=== PATIENT | female | born 1975 | race Caucasian/White ===

== ENCOUNTER → 2017-05-12 | Outpatient (CLI) | payer BC ==
--- NOTE | 2017-05-12 12:39 | RADIOLOGY REPORT (SQ) ---
EXAM DESCRIPTION: CTA CHEST COMPLETED DATE/TIME: 05/12/2017 11:41 am REASON FOR STUDY: CHEST PAIN, UNSPECIFIED R07.9 CHEST PAIN, UNSPECIFIED R06.02 SHORTNESS OF BREATH COMPARISON: CT angio chest 03/03/2016, 09/14/2014 TECHNIQUE: CT scan of the chest performed using helical scanning technique with dynamic intravenous contrast injection. Images reviewed with lung, soft tissue and bone windows. Reconstructed coronal and sagittal MPR images reviewed. Additional 3 dimensional post-processing performed to develop Maximal Intensity Projection images (CA P). All images stored on PACS. All CT scanners at this facility use dose modulation, iterative reconstruction, and/or weight based d osing when appropriate to reduce radiation dose to as low as reasonably achievable (ALARA). [facility]: Dose Right [facility]: CareDose [facility]: Dose Right [facility]: Teradose 4D [facility]: [email or web address] CONTRAST TYPE AND DOSE: contrast/concentration: Isovue 370.00 mg/ml; Total Contrast Delivered: 69.0 ml; Total Saline Delivered: 110.0 ml RENAL FUNCTION: Creatinine 0.9 RADIATION DOSE: Up-to-date CT equipment and radiation dose reduction techniques were employed. CTDIv ol: 9.4 - 15.4 mGy. DLP: 585 mGy-cm. . LIMITATIONS: None. FINDINGS: LUNGS AND PLEURA: No masses, infiltrates, pneumothorax. No pleural effusions, calcificati ons. AORTA AND GREAT VESSELS: No aneurysm or dissection. HEART: No pericardial effusion. PULMONARY ARTERIES: No emboli visualized in the main pulmonary arteries or the segmental branches. HILAR AND MEDIASTINAL STRUCTURES: No identified masses or abnormal nodes. HARDWARE: None in the chest. UPPER ABDOMEN: Stable splenomegaly, spleen at least 16 cm AP diameter at the bottom edge of the field of view. Post cholecystectomy. THYROID AND OTHER SOFT TISSUES: No masses. No adenopathy. BONES: Diffuse bony sclerosis correlates with a history of CLL 3D MIPS: Confirm above findings. OTHER: No other significant finding. IMPRESSION: No CT angio evidence of acute pulmonary emboli or thoracic aortic dissection. No acute infiltrates. Splenomegaly and bony sclerosis correlates with history of CLL TECHNICAL DOCUMENTATION: JOB ID: [id number] Quality ID # [id number]: Final reports with documentation of one or more dose reduction techniques (e.g., Au tomated exposure control, adjustment of the mA and/or kV according to patient size, use of iterative reconstruction technique) 2010 [facility] [employer]- All Rights Reserved
== END ==
LOC: RAD 10:52
PROVIDERS: ATTEND Internal Medicine
DX: R07.9 Chest pain, unspecified (principal); R06.02 Shortness of breath
CPT/HCPCS: 71275; 82565

== ENCOUNTER 2017-08-01 13:37 | Emergency (ER) | payer BC ==
[2017-08-01] MEDS ORDERED: ASPIRIN 81 MG TABLET, CHEWABLE PO ONE (14:48)
[2017-08-01] MEDS ORDERED: LIDOCAINE 5% (700 MG) TRANSDERMAL ADH..PATCH TP ONE (14:49)
--- NOTE | 2017-08-01 14:49 | ER Document Report ---
ED Medical Screen (RME) - General Chief Complaint: Chest Pain Stated Complaint: CHEST PAIN Time Seen by Provider: 08/01/17 14:42 TRAVEL OUTSIDE OF THE [place] IN LAST 30 DAYS: No - HPI Notes: 08/01/17 14:49 Right arm numbness and tingling burning sensation along the right chest wall pain history of leukemia - Related Data Allergies/Adverse Reactions: No Known Allergies Allergy (Unverified 09/07/11 15:42) Past Medical History - Social History Chew tobacco use (# tins/day): No Frequency of alcohol use: None Drug Abuse: None - Past Medical History Cardiac Medical History: Denies: Hx Coronary Artery Disease, Hx Heart Attack, Hx Hypertension Pulmonary Medical History: Denies: Hx Asthma, Hx Bronchitis, Hx COPD, Hx Pneumonia Neurological Medical History: Denies: Hx Cerebrovascular Accident, Hx Seizures Renal/ Medical History: Denies: Hx Peritoneal Dialysis Malignancy Medical History: Reports: Hx Leukemia Musculoskeltal Medical History: Denies Hx Arthritis Past Surgical History: Reports: Hx Appendectomy, Hx Breast Surgery - lump removal, Hx Section - X2, Hx Cholecystectomy, Hx Tubal Ligation. Denies: Hx Hysterectomy, Hx Pacemaker - Immunizations Hx Diphtheria, Pertussis, Tetanus Vaccination: Yes Review of Systems - Review of Systems Constitutional: Other - Right-sided chest pain and arm pain Physical Exam - Vital signs Vitals: Temp Pulse Resp BP Pulse Ox 98.8 F 67 16 130/68 H 97 08/01/17 13:47 08/01/17 13:47 08/01/17 13:47 08/01/17 13:47 08/01/17 13:47 - Respiratory Respiratory status: No respiratory distress Chest status: Nontender Breath sounds: Normal Chest palpation: Normal Course - Vital Signs Vital signs: Temp Pulse Resp BP Pulse Ox 98.8 F 67 16 130/68 H 97 08/01/17 13:47 08/01/17 13:47 08/01/17 13:47 08/01/17 13:47 08/01/17 13:47
[2017-08-01 15:26] LABS: ABSOLUTE EOSINOPHILS # (AUTO) 0.1 10^3/uL (0.0-0.6); ABSOLUTE LYMPHOCYTES (AUTO) 1.4 10^3/uL (0.5-4.7); ABSOLUTE MONOCYTES (AUTO) 0.2 10^3/uL (0.1-1.4); ABSOLUTE NEUT (AUTO) 1.5 10^3/uL (1.7-8.2); BASOPHILS % (AUTO) 0.7 % (0-2); EOSINOPHILS % (AUTO) 2.5 % (0-6); HEMATOCRIT 34.7 % (36.0-47.0); HGB HCT DIFFERENCE 1.3; LYMPHOCYTES % (AUTO) 43.8 % (13-45); MEAN CORPUSCULAR HEMOGLOBIN 30.6 pg (27.0-33.4); MEAN CORPUSCULAR HGB CONC 34.6 g/dL (32.0-36.0); MEAN CORPUSCULAR VOLUME 88 fl (80-97); MONOCYTES % (AUTO) 5.7 % (3-13); RED BLOOD COUNT 3.93 10^6/uL (3.72-5.28); RED CELL DISTRIBUTION WIDTH 15.5 % (11.5-14.0); SEGMENTED NEUTROPHILS % (AUTO) 47.3 % (42-78); WHITE BLOOD COUNT 3.2 10^3/uL (4.0-10.5)
[2017-08-01 15:32] LABS: PROTHROMBIN TIME 12.3 SEC (11.4-15.4)
[2017-08-01 15:43] LABS: ALANINE AMINOTRANSFERASE 18 U/L (9-52); ALKALINE PHOSPHATASE 41 U/L (38-126); ANION GAP 7 (5-19); ASPARTATE AMINO TRANSFERASE 18 U/L (14-36); BILIRUBIN,DIRECT 0.3 mg/dL (0.0-0.4); BILIRUBIN,TOTAL 0.5 mg/dL (0.2-1.3); BLOOD UREA NITROGEN 10 mg/dL (7-20); CALCIUM 10.1 mg/dL (8.4-10.2); CARBON DIOXIDE 28 mmol/L (22-30); CHLORIDE 105 mmol/L (98-107); CREATINE KINASE 117 U/L (30-135); CREATININE RESULT 0.78 mg/dL (0.52-1.25); GLUCOSE 86 mg/dL (75-110); POTASSIUM 4.6 mmol/L (3.6-5.0); SODIUM 140.1 mmol/L (137-145); TOTAL PROTEIN 6.5 g/dL (6.3-8.2)
--- NOTE | 2017-08-01 15:46 | RADIOLOGY REPORT (SQ) ---
EXAM DESCRIPTION: CHEST PA/LAT COMPLETED DATE/TIME: 08/01/2017 3:38 pm REASON FOR STUDY: right chest wall pain COMPARISON: 09/10/2014. EXAM PARAMETERS: NUMBER OF VIEWS: two views TECHNIQUE: Digital Frontal and Lateral radiographic views of the chest acquired. RADIATION DOSE: NA LIMITATIONS: none FINDINGS: LUNGS AND PLEURA: No opacities, masses or pneumothorax. No pleural effusion. MEDIASTINUM AND HILAR STRUCTURES: No masses or contour abnormalities. HEART AND VASCULAR STRUCTURES: Heart normal size. No evidence for failure. BONES: No acute findings. HARDWARE: None in the chest. OTHER: No other significant finding. IMPRESSION: NO SIGNIFICANT RADIOGRAPHIC FINDING IN THE CHEST. TECHNICAL DOCUMENTATION: JOB ID: [id number] [employer]- All Rights Reserved
--- NOTE | 2017-08-01 15:46 | RADIOLOGY REPORT (SQ) ---
EXAM DESCRIPTION: CERV SP 4 OR 5 VIEWS COMPLETED DATE/TIME: 08/01/2017 3:38 pm REASON FOR STUDY: right arm pain COMPARISON: None. NUMBER OF VIEWS: Five views. TECHNIQUE: AP, lateral, obliques and odontoid radiographic images acquired of the cervical spine. LIMITATIONS: None. FINDINGS: MINERALIZATION: Normal. ALIGNMENT: Anatomic. VERTEBRAE: Vertebral bodies of normal height. DISCS: No significant osteophytes or sclerosis. Disc height maintained. FORAMINA: No osteophytes or foraminal narrowing. LATERAL AND POSTERIOR ELEMENTS: Facets, lateral masses and spinous processes without significant find ings. HARDWARE: None in the spine. SOFT TISSUES: No masses or calcifications. Lung apices clear. OTHER: No other significant finding. IMPRESSION: NO SIGNIFICANT RADIOGRAPHIC FINDING IN THE CERVICAL SPINE. TECHNICAL DOCUMENTATION: JOB ID: [id number] [employer]- All Rights Reserved
[2017-08-01 15:54] LABS: CREATINE KINASE MB 1.43 ng/mL (<4.55)
[2017-08-01 15:55] LABS: TROPONIN I < 0.012 ng/mL
--- NOTE | 2017-08-01 15:57 | ER Document Report ---
ED General - General Mode of Arrival: Ambulatory Information source: Patient TRAVEL OUTSIDE OF THE [place] IN LAST 30 DAYS: No <BEN LUNDY - Last Filed: 08/01/17 15:59> <GOLDEN MCNAIR - Last Filed: 08/01/17 22:28> - General Chief Complaint: Chest Pain Stated Complaint: CHEST PAIN Time Seen by Provider: 08/01/17 14:42 Notes: Patient is a 43-year-old female who presents to the emergency department today with complaints of chest pain and right finger/hand numbness. Patient states she has noticed this right hand numbness for several days, worsening at night. Patient states the numbness is to her first, second, third, and fourth digits on the right hand but it excludes the fifth digit. Patient states her chest pain began this morning and it became worse prior to arrival today. She describes this chest pain as a sharp pain that radiates to her back. Patient states she has shortness of breath when her pain becomes bad. Patient has a history of leukemia but states it has been in remission for 9 months. (BEN LUNDY) - Related Data Allergies/Adverse Reactions: No Known Allergies Allergy (Unverified 09/07/11 15:42) Past Medical History - General Information source: Patient - Social History Smoking Status: Never Smoker Cigarette use (# per day): No Chew tobacco use (# tins/day): No Frequency of alcohol use: None Drug Abuse: None Lives with: Family Family History: Reviewed & Not Pertinent Patient has suicidal ideation: No Patient has homicidal ideation: No Malignancy Medical History: Reports: Hx Leukemia - has been in remission for 9 months Past Surgical History: Reports: Hx Appendectomy, Hx Breast Surgery - lump removal, Hx Section - X2, Hx Cholecystectomy, Hx Tubal Ligation - Immunizations Hx Diphtheria, Pertussis, Tetanus Vaccination: Yes Hx Pneumococcal Vaccination: 08/15/14 <BEN LUNDY - Last Filed: 08/01/17 15:59> Review of Systems - Review of Systems Constitutional: No symptoms reported EENT: No symptoms reported Cardiovascular: See HPI, Chest pain Respiratory: Short of breath Gastrointestinal: No symptoms reported Genitourinary: No symptoms reported Female Genitourinary: No symptoms reported Musculoskeletal: No symptoms reported Skin: No symptoms reported Hematologic/Lymphatic: No symptoms reported Neurological/Psychological: See HPI, Tingling - right hand, 1-4th digits, excludes 5th digit -: Yes All other systems reviewed and negative <NIKKIE,BEN - Last Filed: 08/01/17 15:59> Physical Exam <BEN LUNDY - Last Filed: 08/01/17 15:59> <GOLDEN MCNAIR - Last Filed: 08/01/17 22:28> - Vital signs Vitals: Temp Pulse Resp BP Pulse Ox 98.8 F 67 16 130/68 H 97 08/01/17 13:47 08/01/17 13:47 08/01/17 13:47 08/01/17 13:47 08/01/17 13:47 - Notes Notes: PHYSICAL EXAM GENERAL: Alert, interacts well. No acute distress. HEAD: Normocephalic, atraumatic. EYES: Pupils equal, round, and reactive to light. Extraocular movements intact. ENT: Oral mucosa moist, tongue midline. NECK: Full range of motion. Supple. Trachea midline. LUNGS: Crackles in the right lower lobe, no wheezes or rhonchi. No respiratory distress. CHEST: Right anterior chest wall pain with palpation. HEART: Regular rate and rhythm. No murmurs, gallops, or rubs. ABDOMEN: Soft, non-tender. Non-distended. Bowel sounds present in all 4 quadrants. EXTREMITIES: Moves all 4 extremities spontaneously. No edema, radial and dorsalis pedis pulses 2/4 bilaterally. No cyanosis. Negative Tinel's test, Positive Phalen's test. NEUROLOGICAL: Alert and oriented x3. Normal speech. PSYCH: Normal affect, normal mood. SKIN: Warm, dry, normal turgor. No rashes or lesions noted. (BEN LUNDY) Course - Laboratory Result Diagrams: 08/01/17 15:15 08/01/17 15:15 <BEN LUNDY - Last Filed: 08/01/17 15:59> - Laboratory Result Diagrams: 08/01/17 15:15 08/01/17 15:15 <GOLDEN MCNAIR - Last Filed: 08/01/17 22:28> - Re-evaluation Re-evalutation: 08/01/17 18:39 CBC shows slight leukopenia with white blood cell count of 3.2 and platelets slightly low at 145, coags normal, CMP normal, cardiac enzymes negative 2, cervical spine and chest x-ray do not show any acute process. EKG is nonischemic. Chest pain is reproducible on examination. Suspect costochondritis. Patient is low risk for ischemic heart disease. Suggest follow-up with primary care physician as an outpatient. Discharged home with anti-inflammatory medications in the form of ibuprofen. 08/01/17 22:26 right wrist tingling consistent with carpal tunnel syndrome, placed in cock-up splint. (GOLDEN MCNAIR) - Vital Signs Vital signs: Temp Pulse Resp BP Pulse Ox 98.8 F 77 18 115/69 98 08/01/17 13:47 08/01/17 19:00 08/01/17 19:00 08/01/17 19:00 08/01/17 19:00 - Laboratory Laboratory results interpreted by me: 08/01/17 15:15 WBC 3.2 L Hct 34.7 L RDW 15.5 H Plt Count 145 L Absolute Neutrophils 1.5 L Procedures - Immobilization Right Wrist Pre-Proc Neuro Vasc Exam: Normal Immobilizer type: Cock-up Performed by: PCT Post-Proc Neuro Vasc Exam: Normal, Unchanged from pre-exam Alignment checked and good: Yes <GOLDEN MCNAIR - Last Filed: 08/01/17 22:28> Discharge <BEN LUNDY - Last Filed: 08/01/17 15:59> <GOLDEN MCNAIR - Last Filed: 08/01/17 22:28> - Discharge Clinical Impression: Right-sided chest wall pain, Carpal tunnel syndrome, right Hypertension Qualifiers: Hypertension type: essential hypertension Qualified Code(s): I10 - Essential ( primary) hypertension Condition: Stable Disposition: HOME, SELF-CARE Instructions: Chest Wall Pain ([facility]) Additional Instructions: Please take ibuprofen 800 mg every 8 hours for the next 2 days for your pain, you may take it only as needed after that. There is no sign of a heart attack today. Please follow-up with your primary care physician as outpatient. Forms: Elevated Blood Pressure Referrals: ANTHONY MAST MD [Primary Care Provider] - Follow up as needed Scribe Attestation: 08/01/17 22:28 I personally performed the services described in the documentation, reviewed and edited the documentation which was dictated to the scribe in my presence, and it accurately records my words and actions. (GOLDEN MCNAIR) Scribe Documentation - Scribe Written by Wayne:: Wayne Santos, 08/01/2017 1610 acting as scribe for :: Majo <BEN LUNDY - Last Filed: 08/01/17 15:59>
[2017-08-01 19:01] VITALS: BP 115/69
--- NOTE | 2017-08-01 23:33 | EKG REPORT ---
SEVERITY:- NORMAL ECG - SINUS RHYTHM : Confirmed by: Velma Whelan 01-Aug-2017 23:32:28
== END 2017-08-01 19:00 | disposition home or self-care (01) ==
LOC: ER 13:37
DX: R07.89 Other chest pain (principal); G56.01 Carpal tunnel syndrome, right upper limb; I10 Essential (primary) hypertension; R20.0 Anesthesia of skin; M79.641 Pain in right hand
CPT/HCPCS: 93005; 99285; 36415; 82553; 82550; 85025; 85610; 80053; 84484; 72050; 71020; 93010; L3908

== ENCOUNTER 2018-04-07 15:42 | Emergency (ER) | payer BC ==
[2018-04-07] MEDS ORDERED: ACETAMINOPHEN 325 MG TABLET PO ONE (16:10)
--- NOTE | 2018-04-07 16:12 | ER Document Report ---
ED Medical Screen (RME) - General Chief Complaint: Abdominal Pain Stated Complaint: BACK PAIN/ ABDOMINAL PAIN Time Seen by Provider: 04/07/18 16:07 Notes: RAPID MEDICAL EVALUATION DISCLOSURE I have seen this patient as part of a Rapid Medical Evaluation and, if applicable, placed any initially appropriate orders. The patient will be seen and fully evaluated, including a full history and physical exam, by a provider ( in Main ED or Fast Track) when a room becomes available. 42-year-old female here with complaints of upper abdominal pain ongoing for the past 1-2 weeks. It is worse with sitting down. Not worse with food. No dysuria nausea vomiting diarrhea frequency hesitancy. She is also had some continued lower back "burning sensation" that is causing some tingling to the back of her right thigh. She denies any incontinence retention weakness. EXAM Minimal upper quadrant TTP No appreciable back tenderness Strength 5/5 BLEs TRAVEL OUTSIDE OF THE [place] IN LAST 30 DAYS: No - Related Data Allergies/Adverse Reactions: No Known Allergies Allergy (Unverified 09/07/11 15:42) Home Medications: spycel Past Medical History - Social History Chew tobacco use (# tins/day): No Frequency of alcohol use: None Drug Abuse: None - Past Medical History Cardiac Medical History: Denies: Hx Coronary Artery Disease, Hx Heart Attack, Hx Hypertension Pulmonary Medical History: Denies: Hx Asthma, Hx Bronchitis, Hx COPD, Hx Pneumonia Neurological Medical History: Denies: Hx Cerebrovascular Accident, Hx Seizures Renal/ Medical History: Denies: Hx Peritoneal Dialysis Malignancy Medical History: Reports: Hx Leukemia - has been in remission for 9 months Musculoskeltal Medical History: Denies Hx Arthritis Past Surgical History: Reports: Hx Appendectomy, Hx Breast Surgery - lump removal, Hx Section - X2, Hx Cholecystectomy, Hx Tubal Ligation. Denies: Hx Hysterectomy, Hx Pacemaker - Immunizations Hx Diphtheria, Pertussis, Tetanus Vaccination: Yes Physical Exam - Vital signs Vitals: Temp Pulse Resp BP Pulse Ox 99.2 F 82 16 139/75 H 100 04/07/18 15:55 04/07/18 15:55 04/07/18 15:55 04/07/18 15:55 04/07/18 15:55 Course - Vital Signs Vital signs: Temp Pulse Resp BP Pulse Ox 99.2 F 82 16 139/75 H 100 04/07/18 15:55 04/07/18 15:55 04/07/18 15:55 04/07/18 15:55 04/07/18 15:55
--- NOTE | 2018-04-07 17:14 | RADIOLOGY REPORT (SQ) ---
EXAM DESCRIPTION: ACUTE ABDOMEN SERIES COMPLETED DATE/TIME: 04/07/2018 5:05 pm REASON FOR STUDY: upper abd pain COMPARISON: None. NUMBER OF VIEWS: Three views. TECHNIQUE: Frontal chest, supine abdomen and upright/decubitus abdomen radiographic images acquired. LIMITATIONS: None. FINDINGS: CHEST: Lungs clear of infiltrates. FREE AIR: None. No abnormal gas collections. BOWEL GAS PATTERN: Nonobstructive pattern. No dilated loops or air fluid levels. CALCIFICATIONS: No suspicious calcifications. HARDWARE: Surgical clips. SOFT TISSUES: No gross mass or suggestion of organomegaly. BONES: No acute fracture. No worrisome bone lesions. OTHER: No other significant finding. IMPRESSION: NO RADIOGRAPHIC EVIDENCE FOR ACUTE ABDOMINAL DISEASE. TECHNICAL DOCUMENTATION: JOB ID: [id number] [email or web address]- All Rights Reserved Reading location - IP/workstation name: [email or web address]
[2018-04-07 17:44] LABS: ABSOLUTE EOSINOPHILS # (AUTO) 0.1 10^3/uL (0.0-0.6); ABSOLUTE LYMPHOCYTES (AUTO) 1.2 10^3/uL (0.5-4.7); ABSOLUTE MONOCYTES (AUTO) 0.2 10^3/uL (0.1-1.4); ABSOLUTE NEUT (AUTO) 2.1 10^3/uL (1.7-8.2); BASOPHILS % (AUTO) 0.8 % (0-2); EOSINOPHILS % (AUTO) 1.6 % (0-6); HEMATOCRIT 36.2 % (36.0-47.0); HEMOGLOBIN 12.4 g/dL (12.0-15.5); LYMPHOCYTES % (AUTO) 32.2 % (13-45); MEAN CORPUSCULAR HEMOGLOBIN 29.9 pg (27.0-33.4); MEAN CORPUSCULAR HGB CONC 34.2 g/dL (32.0-36.0); MEAN CORPUSCULAR VOLUME 88 fl (80-97); MONOCYTES % (AUTO) 5.8 % (3-13); PLATELET COUNT 158 10^3/uL (150-450); RED BLOOD COUNT 4.14 10^6/uL (3.72-5.28); RED CELL DISTRIBUTION WIDTH 15.3 % (11.5-14.0); SEGMENTED NEUTROPHILS % (AUTO) 59.6 % (42-78); TOTAL CELLS COUNTED % (AUTO) 100 %; WHITE BLOOD COUNT 3.6 10^3/uL (4.0-10.5)
[2018-04-07 18:02] LABS: ALANINE AMINOTRANSFERASE 21 U/L (9-52); ALBUMIN 4.2 g/dL (3.5-5.0); ALKALINE PHOSPHATASE 38 U/L (38-126); ANION GAP 11 (5-19); ASPARTATE AMINO TRANSFERASE 18 U/L (14-36); BILIRUBIN,DIRECT 0.2 mg/dL (0.0-0.4); BILIRUBIN,TOTAL 0.4 mg/dL (0.2-1.3); BLOOD UREA NITROGEN 10 mg/dL (7-20); CALCIUM 9.4 mg/dL (8.4-10.2); CARBON DIOXIDE 26 mmol/L (22-30); CHLORIDE 107 mmol/L (98-107); GLUCOSE 90 mg/dL (75-110); LIPASE 178.3 U/L (23-300); POTASSIUM 3.8 mmol/L (3.6-5.0); SODIUM 143.5 mmol/L (137-145); TOTAL PROTEIN 6.9 g/dL (6.3-8.2)
[2018-04-07 18:04] LABS: APPEARANCE,URINE CLEAR; BILIRUBIN,URINE NEGATIVE (NEGATIVE); COLOR,URINE YELLOW; GLUCOSE, URINE NEGATIVE (NEGATIVE); KETONES,URINE TRACE mg/dL (NEGATIVE); LEUKOCYTE ESTERASE,URINE NEGATIVE (NEGATIVE); NITRITE,URINE NEGATIVE (NEGATIVE); PROTEIN,URINE 100 mg/dL (NEGATIVE); URINE SPECIFIC GRAVITY 1.021; UROBILINOGEN,URINE NEGATIVE mg/dL (<2.0)
--- NOTE | 2018-04-07 19:35 | ER Document Report ---
ED General - General Chief Complaint: Abdominal Pain Stated Complaint: BACK PAIN/ ABDOMINAL PAIN Time Seen by Provider: 04/07/18 16:07 Notes: Patient is a 42 year old female that comes to the ED for chief complaint of abdominal pain. She states she has frequent belching, she has to take stool softeners to have a bowel movement, her bowel movements are slightly hard. She denies fever, nausea/vomiting, pain worse with eating, chest pain, shortness of breath, headache. She has a history of CLL and is taking chemotherapy. She has had a cholecystectomy, tubal ligation. TRAVEL OUTSIDE OF THE [place] IN LAST 30 DAYS: No - Related Data Allergies/Adverse Reactions: No Known Allergies Allergy (Unverified 09/07/11 15:42) Home Medications: spycel Past Medical History - General Information source: Patient - Social History Smoking Status: Never Smoker Chew tobacco use (# tins/day): No Frequency of alcohol use: None Drug Abuse: None Lives with: Family Family History: Reviewed & Not Pertinent Patient has suicidal ideation: No Patient has homicidal ideation: No - Past Medical History Cardiac Medical History: Denies: Hx Coronary Artery Disease, Hx Heart Attack, Hx Hypertension Pulmonary Medical History: Denies: Hx Asthma, Hx Bronchitis, Hx COPD, Hx Pneumonia Neurological Medical History: Denies: Hx Cerebrovascular Accident, Hx Seizures Renal/ Medical History: Denies: Hx Peritoneal Dialysis Malignancy Medical History: Reports: Hx Leukemia - has been in remission for 9 months Musculoskeltal Medical History: Denies Hx Arthritis Past Surgical History: Reports: Hx Appendectomy, Hx Breast Surgery - lump removal, Hx Section - X2, Hx Cholecystectomy, Hx Tubal Ligation. Denies: Hx Hysterectomy, Hx Pacemaker - Immunizations Hx Diphtheria, Pertussis, Tetanus Vaccination: Yes Hx Pneumococcal Vaccination: 08/15/14 Review of Systems - Review of Systems Constitutional: No symptoms reported EENT: No symptoms reported Cardiovascular: No symptoms reported Respiratory: No symptoms reported Gastrointestinal: See HPI Genitourinary: No symptoms reported Female Genitourinary: No symptoms reported Musculoskeletal: No symptoms reported Skin: No symptoms reported Hematologic/Lymphatic: No symptoms reported Neurological/Psychological: No symptoms reported Physical Exam - Vital signs Vitals: Temp Pulse Resp BP Pulse Ox 99.2 F 82 16 139/75 H 100 04/07/18 15:55 04/07/18 15:55 04/07/18 15:55 04/07/18 15:55 04/07/18 15:55 Interpretation: Normal - General General appearance: Appears well, Alert In distress: None - HEENT Head: Normocephalic, Atraumatic Eyes: Normal Conjunctiva: Normal Extraocular movements intact: Yes Eyelashes: Normal Pupils: PERRL Mouth/Lips: Normal Mucous membranes: Normal Pharynx: Normal Neck: Normal - Respiratory Respiratory status: No respiratory distress Chest status: Nontender Breath sounds: Normal Chest palpation: Normal - Cardiovascular Rhythm: Regular Heart sounds: Normal auscultation Murmur: No - Abdominal Inspection: Normal Distension: Other - questionable minimal distension Bowel sounds: Normal Tenderness: No: Tender Organomegaly: No organomegaly - Back Back: Normal, Nontender. No: Tender - Extremities General upper extremity: Normal inspection, Nontender, Normal strength, Normal temperature General lower extremity: Normal inspection, Nontender, Normal strength, Normal temperature - Neurological Neuro grossly intact: Yes Cognition: Normal Orientation: AAOx4 [place] Coma Scale Eye Opening: Spontaneous [place] Coma Scale Verbal: Oriented Lv Coma Scale Motor: Obeys Commands Lv Coma Scale Total: 15 Speech: Normal Motor strength normal: LUE, RUE, LLE, RLE Sensory: Normal - Psychological Associated symptoms: Normal affect, Normal mood - Skin Skin Temperature: Warm Skin Moisture: Dry Skin Color: Normal Course - Re-evaluation Re-evalutation: Patient very well-appearing on exam, unremarkable abdominal exam with no noted tenderness or guarding, patient belches frequently on examination. Mild leukopenia, similar to prior, no significant changes. Chemistry unremarkable. Lipase unremarkable. Urinalysis shows a few ketones, nonspecific otherwise, patient states she has some contamination with her current menstrual cycle with it. Acute abdominal series from triage reviewed and is unremarkable. Vital signs unremarkable, no fever. X-ray does show stool specifically in the patient's or patient complains of bloating symptoms, I suspect this is the cause, also will treat for upper gastrointestinal symptoms. Very low suspicion of acute abdomen or infection. Discussed results with patient and family in detail, discussed medications, follow-up, return precautions, they state understanding and agreement. - Vital Signs Vital signs: Temp Pulse Resp BP Pulse Ox 98.8 F 80 18 127/76 H 98 04/07/18 20:15 04/07/18 20:15 04/07/18 20:15 04/07/18 20:15 04/07/18 20:15 - Laboratory Result Diagrams: 04/07/18 17:10 04/07/18 17:10 Laboratory results interpreted by me: 04/07/18 04/07/18 17:10 17:10 WBC 3.6 L RDW 15.3 H Urine Protein 100 H Urine Ketones TRACE H Urine Blood MODERATE H Discharge - Discharge Clinical Impression: Upper abdominal pain Condition: Stable Disposition: HOME, SELF-CARE Additional Instructions: Your laboratory workup does not show any concerning abnormalities. Your x-ray and imaging are consistent with retained stool in the upper part of your colon, your symptoms are also suggestive of some esophagitis/gastritis. Reduce caffeine, improve hydration, take your Zantac at home, you can also take the Carafate as prescribed to reduce the burning symptoms. I recommend drinking 1/2-1/4 of the magnesium citrate, waiting 6-8 hours and then drinking more as needed, if needed additionally take the MiraLAX for several days until the bowels have moved well and you no longer have the bloating. After this stop and increase fiber and hydration in your diet. Follow-up with your primary care. Return if you worsen including fever of 100.4 or greater, vomiting, severe abdominal pain, or any other concerning or worsening symptoms. Prescriptions: Polyethylene Glycol 3350 [Miralax Powder 17 gm/Packet] 1 packet PO DAILY #1 pkg Sucralfate [Carafate 1 gm Tablet] 1 gm PO QID #20 tablet Referrals: GUALBRETO CUELLO MD [Primary Care Provider] - Follow up as needed
[2018-04-07] MEDS ORDERED: MAGNESIUM CITRATE 296 ML BOTTLE PO ONE (19:50)
[2018-04-07 20:20] VITALS: BP 127/76
== END 2018-04-07 20:21 | disposition home or self-care (01) ==
LOC: ER 15:42
DX: R10.10 Upper abdominal pain, unspecified (principal); R14.2 Eructation; C91.10 Chronic lymphocytic leukemia of B-cell type not having achieved remission; Z79.899 Other long term (current) drug therapy; Z90.49 Acquired absence of other specified parts of digestive tract; Z98.51 Tubal ligation status
CPT/HCPCS: 99284; 36415; 83690; 85025; 81025; 80053; 81001; 74022; J3490

== ENCOUNTER → 2018-10-19 | Outpatient (CLI) | payer BC ==
--- NOTE | 2018-10-19 11:36 | RADIOLOGY REPORT (SQ) ---
EXAM DESCRIPTION: CTA CHEST COMPLETED DATE/TIME: 10/19/2018 10:33 am REASON FOR STUDY: CHEST PAIN (R07.89), SOB (R06.02) R07.89 OTHER CHEST PAIN R06.02 SHORTNESS OF BR EATH chest pain and shortness of breath for a few weeks COMPARISON: CT chest 05/12/2017, 03/03/2016, 09/14/2014 TECHNIQUE: CT scan of the chest performed using helical scanning technique with dynamic intravenous contrast injection. Images reviewed with lung, soft tissue and bone windows. Reconstructed coronal and sagittal MPR images reviewed. Additional 3 dimensional post-processing performed to develop Maximal Intensity Projection images (ME P). All images stored on PACS. All CT scanners at this facility use dose modulation, iterative reconstruction, and/or weight based d osing when appropriate to reduce radiation dose to as low as reasonably achievable (ALARA). [facility]: Dose Right [facility]: CareDose [facility]: Dose Right [facility]: Teradose 4D [facility]: Recorrido CONTRAST TYPE AND DOSE: contrast/concentration: Isovue 350.00 mg/ml; Total Contrast Delivered: 69.0 ml; Total Saline Delivered: 110.0 ml Contrast bolus optimized for the pulmonary arteries. Not diagnostic for the aorta. RENAL FUNCTION: None required. The patient is less than 50 years old. RADIATION DOSE: CT Rad equipment meets quality standard of care and radiation dose reduction techniq ues were employed. CTDIvol: 9.4 - 12.8 mGy. DLP: 496 mGy-cm. . LIMITATIONS: None. FINDINGS: LUNGS AND PLEURA: No masses, infiltrates, or pneumothorax. No pleural effusions or pleura l calcifications. AORTA AND GREAT VESSELS: No aneurysm. Contrast bolus not optimized for the aorta. HEART: No pericardial effusion. No significant coronary artery calcifications. PULMONARY ARTERIES: No emboli visualized in the main pulmonary arteries or the segmental branches. HILAR AND MEDIASTINAL STRUCTURES: No identified masses or abnormal nodes. HARDWARE: None in the chest. UPPER ABDOMEN: No significant findings. Limited exam. THYROID AND OTHER SOFT TISSUES: No masses. No adenopathy. BONES: No acute or significant finding. 3D MIPS: Confirm above findings. OTHER: No other significant finding. IMPRESSION: NORMAL CTA OF THE CHEST. NO PULMONARY EMBOLI. COMMENT: Quality ID # [id number]: Final reports with documentation of one or more dose reduction techniques (e.g., Automated exposure control, adjustment of the mA and/or kV according to patient size, use of iterative reconstruction technique) TECHNICAL DOCUMENTATION: JOB ID: [id number] [employer]- All Rights Reserved Reading location - IP/workstation name: [email or web address]
== END ==
LOC: RAD 10:09
PROVIDERS: ATTEND Internal Medicine
DX: R07.89 Other chest pain (principal); R06.02 Shortness of breath
CPT/HCPCS: 71275

== ENCOUNTER 2018-10-31 13:08 | Emergency (ER) | payer BC ==
--- NOTE | 2018-10-31 13:27 | EKG REPORT ---
SEVERITY:- BORDERLINE ECG - SINUS RHYTHM PROBABLE LEFT ATRIAL ABNORMALITY : Confirmed by: Anupam Simental MD 31-Oct-2018 13:26:46
[2018-10-31] MEDS ORDERED: ASPIRIN 81 MG TABLET, CHEWABLE PO ONE (14:55)
--- NOTE | 2018-10-31 14:58 | ER Document Report ---
ED Medical Screen (RME) - General Chief Complaint: Chest Pain Stated Complaint: CHEST PAIN Time Seen by Provider: 10/31/18 14:49 Mode of Arrival: Ambulatory Information source: Patient Notes: 43-year-old female with leukemia currently undergoing treatment presents with complaint of chest pain started 2 weeks prior to arrival with worsening of pain over the last 2 days. Patient reports chest pressure, shortness of breath. Patient underwent a CTA on October 19, 2018 which showed no PE. I have greeted and performed a rapid initial assessment of this patient. A comprehensive ED assessment and evaluation of the patient, analysis of test results and completion of medical decision making process we will be contacted by additional ED providers. PHYSICAL EXAMINATION: Vital signs reviewed-afebrile, normotensive GENERAL: Holding chest LUNGS: No respiratory distress Musculoskeletal: Normal range of motion NEUROLOGICAL: Normal speech, normal gait. PSYCH: Normal mood, normal affect. SKIN: Warm, Dry, normal turgor, no rashes or lesions noted. TRAVEL OUTSIDE OF THE [place] IN LAST 30 DAYS: No - HPI Onset: Other Onset/Duration: Intermittent, Worse Quality of pain: Pressure Severity: Moderate Associated Symptoms: Chest pain, Hurts to breath, Shortness of breath, Sweating. denies: Abdominal pain, Leg swelling, Nausea Exacerbated by: Denies Relieved by: Denies Similar symptoms previously: Yes Recently seen / treated by doctor: Yes - Related Data Smoking: Non-smoker Frequency of alcohol use: None Drug Abuse: None Allergies/Adverse Reactions: No Known Allergies Allergy (Verified 10/31/18 13:09) Past Medical History - Social History Chew tobacco use (# tins/day): No Frequency of alcohol use: None Drug Abuse: None - Past Medical History Cardiac Medical History: Denies: Hx Coronary Artery Disease, Hx Heart Attack, Hx Hypertension Pulmonary Medical History: Denies: Hx Asthma, Hx Bronchitis, Hx COPD, Hx Pneumonia Neurological Medical History: Denies: Hx Cerebrovascular Accident, Hx Seizures Renal/ Medical History: Denies: Hx Peritoneal Dialysis Malignancy Medical History: Reports: Hx Leukemia - has been in remission for 9 months Musculoskeltal Medical History: Denies Hx Arthritis Past Surgical History: Reports: Hx Appendectomy, Hx Breast Surgery - lump removal, Hx Section - X2, Hx Cholecystectomy, Hx Tubal Ligation. Denies: Hx Hysterectomy, Hx Pacemaker - Immunizations Hx Diphtheria, Pertussis, Tetanus Vaccination: Yes Physical Exam - Vital signs Vitals: Temp Pulse Resp BP Pulse Ox 98.5 F 89 14 127/74 H 99 10/31/18 13:17 10/31/18 13:17 10/31/18 13:17 10/31/18 13:17 10/31/18 13:17 Course - Vital Signs Vital signs: Temp Pulse Resp BP Pulse Ox 98.5 F 89 14 127/74 H 99 10/31/18 13:17 10/31/18 13:17 10/31/18 13:17 10/31/18 13:17 10/31/18 13:17 Doctor's Discharge - Discharge Referrals: YOLANDA DEAN MD [Primary Care Provider] - Follow up as needed
--- NOTE | 2018-10-31 15:48 | RADIOLOGY REPORT (SQ) ---
EXAM DESCRIPTION: CHEST 2 VIEWS COMPLETED DATE/TIME: 10/31/2018 3:33 pm REASON FOR STUDY: Chest pain COMPARISON: July 2017 EXAM PARAMETERS: NUMBER OF VIEWS: two views TECHNIQUE: Digital Frontal and Lateral radiographic views of the chest acquired. RADIATION DOSE: NA LIMITATIONS: none FINDINGS: LUNGS AND PLEURA: No opacities, masses or pneumothorax. No pleural effusion. MEDIASTINUM AND HILAR STRUCTURES: No masses or contour abnormalities. HEART AND VASCULAR STRUCTURES: Heart normal size. No evidence for failure. BONES: No acute findings. HARDWARE: None in the chest. OTHER: No other significant finding. IMPRESSION: NO ACUTE RADIOGRAPHIC FINDING IN THE CHEST. TECHNICAL DOCUMENTATION: JOB ID: [id number] [employer]- All Rights Reserved Reading location - IP/workstation name: [email or web address]
[2018-10-31 16:07] LABS: ABSOLUTE LYMPHOCYTES (AUTO) 1.5 10^3/uL (0.5-4.7); ABSOLUTE MONOCYTES (AUTO) 0.2 10^3/uL (0.1-1.4); BASOPHILS % (AUTO) 0.2 % (0-2); EOSINOPHILS % (AUTO) 1.1 % (0-6); HEMATOCRIT 38.2 % (36.0-47.0); HEMOGLOBIN 13.2 g/dL (12.0-15.5); LYMPHOCYTES % (AUTO) 38.7 % (13-45); MEAN CORPUSCULAR HEMOGLOBIN 31.1 pg (27.0-33.4); MEAN CORPUSCULAR HGB CONC 34.5 g/dL (32.0-36.0); MEAN CORPUSCULAR VOLUME 90 fl (80-97); MONOCYTES % (AUTO) 6.4 % (3-13); PLATELET COUNT 165 10^3/uL (150-450); RED BLOOD COUNT 4.23 10^6/uL (3.72-5.28); RED CELL DISTRIBUTION WIDTH 14.3 % (11.5-14.0); SEGMENTED NEUTROPHILS % (AUTO) 53.6 % (42-78); TOTAL CELLS COUNTED % (AUTO) 100 %; WHITE BLOOD COUNT 3.8 10^3/uL (4.0-10.5)
[2018-10-31 16:31] LABS: ALANINE AMINOTRANSFERASE 19 U/L (9-52); ALBUMIN 4.5 g/dL (3.5-5.0); ALKALINE PHOSPHATASE 41 U/L (38-126); ANION GAP 8 (5-19); ASPARTATE AMINO TRANSFERASE 21 U/L (14-36); BILIRUBIN,DIRECT 0.3 mg/dL (0.0-0.4); BILIRUBIN,TOTAL 1.1 mg/dL (0.2-1.3); BLOOD UREA NITROGEN 9 mg/dL (7-20); CALCIUM 9.4 mg/dL (8.4-10.2); CARBON DIOXIDE 24 mmol/L (22-30); CHLORIDE 107 mmol/L (98-107); CREATINE KINASE 114 U/L (30-135); GLUCOSE 94 mg/dL (75-110); POTASSIUM 4.5 mmol/L (3.6-5.0); SODIUM 138.7 mmol/L (137-145); TOTAL PROTEIN 7.1 g/dL (6.3-8.2)
[2018-10-31 16:34] LABS: CREATINE KINASE MB 1.23 ng/mL (<4.55)
[2018-10-31 16:43] LABS: TROPONIN I < 0.012 ng/mL
[2018-10-31] MEDS ORDERED: LIDOCAINE 2% VISCOUS SOLN 20 ML UDCUP PO ONE (18:16)
[2018-10-31] MEDS ORDERED: MAG HYDROX/AL HYDROX/SIMETH SUSP 30 ML UDCUP PO ONE (18:16)
[2018-10-31] MEDS ORDERED: METOCLOPRAMIDE HCL ORAL SOLN 10 MG/10 ML UDCUP PO ONE (18:16)
--- NOTE | 2018-10-31 19:31 | ER Document Report ---
ED General - General Chief Complaint: Chest Pain Stated Complaint: CHEST PAIN Time Seen by Provider: 10/31/18 14:49 Mode of Arrival: Ambulatory TRAVEL OUTSIDE OF THE [place] IN LAST 30 DAYS: No - HPI Patient complains to provider of: Chest pain Notes: Patient coming in for evaluation of chest pain. Patient was seen by the doctor in triage note is provided below. Patient 43-year-old female with leukemia currently undergoing treatment presents with complaint of chest pain started 2 weeks prior to arrival with worsening of pain over the last 2 days. Patient reports chest pressure, shortness of breath. Patient underwent a CTA on October 19, 2018 which showed no PE. Upon my evaluation patient is resting comfortably. Patient denies any fever chills nausea vomiting diarrhea. Patient states that the pain is in the center of the chest also feels like his on the back of her spine burning sensation that comes and goes. Patient states she is drinking lots of soda has had a EGD performed in the past however this is been greater than 6 years ago. Patient denies a history of acid reflux or GERD. Patient otherwise looks to be in no significant distress upon my evaluation. Patient has discussed these pains with her oncologist to do believe it may be related to her chemotherapy. - Related Data Allergies/Adverse Reactions: No Known Allergies Allergy (Verified 10/31/18 13:09) Past Medical History - General Information source: Patient - Social History Smoking Status: Never Smoker Chew tobacco use (# tins/day): No Frequency of alcohol use: None Drug Abuse: None Family History: Reviewed & Not Pertinent Patient has suicidal ideation: No Patient has homicidal ideation: No - Past Medical History Cardiac Medical History: Denies: Hx Coronary Artery Disease, Hx Heart Attack, Hx Hypertension Pulmonary Medical History: Denies: Hx Asthma, Hx Bronchitis, Hx COPD, Hx Pneumonia Neurological Medical History: Denies: Hx Cerebrovascular Accident, Hx Seizures Renal/ Medical History: Denies: Hx Peritoneal Dialysis Malignancy Medical History: Reports: 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 Denies: Hx Hysterectomy, Hx Pacemaker - Immunizations Hx Diphtheria, Pertussis, Tetanus Vaccination: Yes Hx Pneumococcal Vaccination: 08/15/14 Review of Systems - Review of Systems Constitutional: No symptoms reported EENT: No symptoms reported Cardiovascular: Chest pain Respiratory: No symptoms reported Gastrointestinal: No symptoms reported Genitourinary: No symptoms reported Female Genitourinary: No symptoms reported Musculoskeletal: No symptoms reported Skin: No symptoms reported Hematologic/Lymphatic: No symptoms reported Neurological/Psychological: No symptoms reported -: Yes All other systems reviewed and negative Physical Exam - Vital signs Vitals: Temp Pulse Resp BP Pulse Ox 98.5 F 89 14 127/74 H 99 10/31/18 13:17 10/31/18 13:17 10/31/18 13:17 10/31/18 13:17 10/31/18 13:17 Interpretation: Normal - General General appearance: Appears well, Alert - HEENT Head: Normocephalic, Atraumatic Eyes: Normal Pupils: PERRL - Respiratory Respiratory status: No respiratory distress Chest status: Nontender Breath sounds: Normal Chest palpation: Normal - Cardiovascular Rhythm: Regular Heart sounds: Normal auscultation Murmur: No - Abdominal Inspection: Normal Distension: No distension Bowel sounds: Normal Tenderness: Nontender Organomegaly: No organomegaly - Back Back: Normal, Nontender - Extremities General upper extremity: Normal inspection, Nontender, Normal color, Normal ROM , Normal temperature General lower extremity: Normal inspection, Nontender, Normal color, Normal ROM , Normal temperature, Normal weight bearing. No: Emeterio's sign - Neurological Neuro grossly intact: Yes Cognition: Normal Orientation: AAOx4 Lv Coma Scale Eye Opening: Spontaneous Gonzales Coma Scale Verbal: Oriented Lv Coma Scale Motor: Obeys Commands Gonzales Coma Scale Total: 15 Speech: Normal Motor strength normal: LUE, RUE, LLE, RLE Sensory: Normal - Psychological Associated symptoms: Normal affect, Normal mood - Skin Skin Temperature: Warm Skin Moisture: Dry Skin Color: Normal Course - Re-evaluation Re-evalutation: 10/31/18 23:40 The patient has atypical chest pain as the patient's chest pain is not suggestive of pulmonary embolus, cardiac ischemia, aortic dissection, or other serious etiology. Given the extremely low risk of these diagnoses further testing and evaluation for these possibilities does not appear to be indicated at this time. The patient has been instructed to return if the symptoms worsen or change in any way. Atypical chest pain with burning sensation on the spine patient did receive some relief with a GI cocktail recommend the patient take Zantac follow-up with her primary care physician dietary changes avoiding caffeinated drinks along with fatty greasy food. - Vital Signs Vital signs: Temp Pulse Resp BP Pulse Ox 98.7 F 76 16 120/76 98 10/31/18 19:45 10/31/18 19:45 10/31/18 19:45 10/31/18 19:45 10/31/18 19:45 - Laboratory Result Diagrams: 10/31/18 15:54 10/31/18 15:54 Laboratory results interpreted by me: 10/31/18 15:54 WBC 3.8 L RDW 14.3 H Discharge - Discharge Clinical Impression: Chest pain Qualifiers: Chest pain type: unspecified Qualified Code(s): R07.9 - Chest pain, unspecified Condition: Good Disposition: HOME, SELF-CARE Instructions: Chest Wall Pain ([facility]), Chest Pain of Unclear Cause ([facility]), Reflux Disease (GERD) ([facility]) Additional Instructions: Your laboratory studies chest x-ray today do not show any critical findings I would highly recommend taking Zantac as prescribed for the next week and also watching her diet drinking water Gatorade avoiding carbonated drinks avoiding fatty greasy food. I do believe the pain to experiencing is more likely esophageal or gastric in nature. I recommend following up with your primary care physician for further evaluation you may need to see a GI specialist for further evaluation. Return to ER for concerning symptoms. Prescriptions: Ranitidine HCl [Zantac 75 mg Tablet] 75 mg PO BID #14 tablet Referrals: YOLANDA DEAN MD [Primary Care Provider] - Follow up in 3-5 days
[2018-10-31 19:46] VITALS: BP 120/76
--- NOTE | 2018-11-03 07:51 | EKG REPORT ---
SEVERITY:- DEFECTIVE ECG - ALL 12 LEADS ARE MISSING : Confirmed by: Anupam Simental MD 03-Nov-2018 07:50:46
== END 2018-10-31 19:46 | disposition home or self-care (01) ==
LOC: ER 13:08
DX: R07.89 Other chest pain (principal); R06.02 Shortness of breath; C95.90 Leukemia, unspecified not having achieved remission; Z79.899 Other long term (current) drug therapy
CPT/HCPCS: 93005; 99285; 36415; 82553; 82550; 85025; 80053; 84484; 71046; 93010; J3490

== ENCOUNTER 2018-12-12 10:50 | Day surgery (SDC) | payer BC ==
[~2018-12-12 10:50] MED LIST: PROPOFOL INJ 200 MG/20 ML VIAL IV ONE
--- NOTE | 2018-12-12 12:32 | Operative Report ---
Operative Report DATE OF SURGERY: 12/12/18 Operative Report: The risks benefits and alternatives of the procedure explained to the patient in detail and informed consent is obtained.A GIF Olympus video scope was inserted into the patient's mouth and hypopharynx, the esophagus is identified intubated and insufflated, the scope was then advanced through the esophagus stomach and duodenum, retroflexion maneuver is done, the esophagus stomach and first and second portions of the duodenum examined. PREOPERATIVE DIAGNOSIS: Noncardiac chest pain POSTOPERATIVE DIAGNOSIS: Hiatal hernia. Gastritis status post biopsy rule out Helicobacter pylori. No ulcers noted OPERATION: EGD with biopsy SURGEON: IKE ARELLANO ANESTHESIA: LMAC TISSUE REMOVED OR ALTERED: As noted above. COMPLICATIONS: None. ESTIMATED BLOOD LOSS: None. INTRAOPERATIVE FINDINGS: As noted above. PROCEDURE: Patient tolerated procedure well. No immediate postprocedure complications are noted. Patient discharged in good condition. Discharge date 12/12/2018. Discharge diet: Regular. Discharge activity: Regular. 2-3-week follow-up to discuss findings. Patient is instructed to call the office or proceed to the emergency room should there be any further problems or questions. I will wait on the pathology.
[2018-12-12 12:35] VITALS: BP 121/71
== END 2018-12-12 12:37 | disposition home or self-care (01) ==
LOC: END 10:50
PROVIDERS: ATTEND Internal Medicine Gastroenterology
DX: K29.50 Unspecified chronic gastritis without bleeding (principal); K44.9 Diaphragmatic hernia without obstruction or gangrene; C92.10 Chronic myeloid leukemia, BCR/ABL-positive, not having achieved remission; R07.9 Chest pain, unspecified
CPT/HCPCS: 43239; 88342 ×2; 88305 ×2; J2704

== ENCOUNTER 2019-11-26 21:51 | Emergency (ER) | payer BC ==
--- NOTE | 2019-11-26 22:22 | ER Document Report ---
ED Medical Screen (RME) - General Chief Complaint: Chest Pain > 30 Stated Complaint: CHEST PAIN Time Seen by Provider: 11/26/19 22:13 Notes: Patient is a 44-year-old female who presents to the emergency department with a chief complaint of chest pain and left shoulder pain. Patient has had her left shoulder pain for a while, but around 1400 this afternoon, she ended up having chest pain in the left side of her anterior chest. Patient took Motrin, but did not have any relief of her symptoms. Exam: S1, S2. I have greeted and performed a rapid initial assessment of this patient. A comprehensive ED assessment and evaluation of the patient, analysis of test results and completion of medical decision making process will be conducted by an additional ED providers. TRAVEL OUTSIDE OF THE [place] IN LAST 30 DAYS: No - Related Data Allergies/Adverse Reactions: No Known Allergies Allergy (Verified 12/12/18 11:06) Home Medications: CHEMO- SPRYCELL Past Medical History - Past Medical History Cardiac Medical History: Denies: Hx Coronary Artery Disease, Hx Heart Attack, Hx Hypertension Pulmonary Medical History: Denies: Hx Asthma, Hx Bronchitis, Hx COPD, Hx Pneumonia Neurological Medical History: Denies: Hx Cerebrovascular Accident, Hx Seizures Renal/ Medical History: Denies: Hx Peritoneal Dialysis Malignancy Medical History: Reports: Hx Leukemia - has been in remission for 9 months Musculoskeltal Medical History: Denies Hx Arthritis Past Surgical History: Reports: Hx Appendectomy, Hx Breast Surgery - lump rem oval, Hx Section - X2, Hx Cholecystectomy, Hx Tubal Ligation. Denies: Hx Hysterectomy, Hx Pacemaker - Immunizations Hx Diphtheria, Pertussis, Tetanus Vaccination: Yes Physical Exam - Vital signs Vitals: Temp Pulse Resp BP Pulse Ox 99.4 F 103 H 18 166/79 H 100 11/26/19 22:06 11/26/19 22:06 11/26/19 22:06 11/26/19 22:06 11/26/19 22:06 Course - Vital Signs Vital signs: Temp Pulse Resp BP Pulse Ox 99.4 F 103 H 18 166/79 H 100 11/26/19 22:06 11/26/19 22:06 11/26/19 22:06 11/26/19 22:06 11/26/19 22:06
--- NOTE | 2019-11-26 23:20 | RADIOLOGY REPORT (SQ) ---
EXAM DESCRIPTION: XR SHOULDER 1 VIEW COMPLETED DATE/TME: 11/26/2019 22:20 CLINICAL HISTORY: 44 years, Female, left shoulder pain COMPARISON: None. FINDINGS: Single view of the shoulder. No acute fracture identified. Normal osseous mineralization. No acute abnormalities of the left hemithorax. IMPRESSION: 1. No acute fracture or dislocation noted on this frontal view. copyright 2010 [employer]- All Rights Reserved
--- NOTE | 2019-11-26 23:21 | RADIOLOGY REPORT (SQ) ---
EXAM DESCRIPTION: XR CHEST 2 VIEWS COMPLETED DATE/TME: 11/26/2019 22:20 CLINICAL HISTORY: chest pain COMPARISON: 10/31/2018 FINDINGS: Single frontal view of the chest. Cardiomediastinal silhouette: Normal size and contour. Lungs: No consolidation, pneumothorax, or pleural effusion. Bones: No acute osseous abnormality. Upper abdomen: Prior cholecystectomy. IMPRESSION: 1. No acute pulmonary process identified.
[2019-11-26 23:23] LABS: ABSOLUTE EOSINOPHILS # (AUTO) 0.1 10^3/uL (0.0-0.6); ABSOLUTE LYMPHOCYTES (AUTO) 1.2 10^3/uL (0.5-4.7); ABSOLUTE MONOCYTES (AUTO) 0.3 10^3/uL (0.1-1.4); ABSOLUTE NEUT (AUTO) 2.3 10^3/uL (1.7-8.2); BASOPHILS % (AUTO) 0.8 % (0-2); EOSINOPHILS % (AUTO) 1.9 % (0-6); HEMATOCRIT 36.8 % (36.0-47.0); HEMOGLOBIN 12.8 g/dL (12.0-15.5); LYMPHOCYTES % (AUTO) 31.6 % (13-45); MEAN CORPUSCULAR HEMOGLOBIN 31.3 pg (27.0-33.4); MEAN CORPUSCULAR HGB CONC 34.9 g/dL (32.0-36.0); MEAN CORPUSCULAR VOLUME 90 fl (80-97); MONOCYTES % (AUTO) 7.6 % (3-13); PLATELET COUNT 162 10^3/uL (150-450); RED BLOOD COUNT 4.09 10^6/uL (3.72-5.28); SEGMENTED NEUTROPHILS % (AUTO) 58.1 % (42-78); TOTAL CELLS COUNTED % (AUTO) 100 %; WHITE BLOOD COUNT 3.9 10^3/uL (4.0-10.5)
[2019-11-26 23:25] LABS: APPEARANCE,URINE SLIGHTLY-CLOUDY; BILIRUBIN,URINE NEGATIVE (NEGATIVE); COLOR,URINE YELLOW; GLUCOSE, URINE NEGATIVE (NEGATIVE); KETONES,URINE NEGATIVE (NEGATIVE); LEUKOCYTE ESTERASE,URINE NEGATIVE (NEGATIVE); NITRITE,URINE NEGATIVE (NEGATIVE); PROTEIN,URINE 30 mg/dL (NEGATIVE); URINE SPECIFIC GRAVITY 1.005; UROBILINOGEN,URINE NEGATIVE mg/dL (<2.0)
[2019-11-26 23:42] LABS: ALBUMIN 4.1 g/dL (3.5-5.0); ALKALINE PHOSPHATASE 42 U/L (38-126); ANION GAP 9 (5-19); ASPARTATE AMINO TRANSFERASE 18 U/L (14-36); BILIRUBIN,DIRECT 0.3 mg/dL (0.0-0.4); BILIRUBIN,TOTAL 0.4 mg/dL (0.2-1.3); BLOOD UREA NITROGEN 10 mg/dL (7-20); CALCIUM 9.8 mg/dL (8.4-10.2); CARBON DIOXIDE 27 mmol/L (22-30); CHLORIDE 104 mmol/L (98-107); CREATINE KINASE 77 U/L (30-135); GLUCOSE 107 mg/dL (75-110); POTASSIUM 3.8 mmol/L (3.6-5.0)
--- NOTE | 2019-11-27 00:17 | EKG REPORT ---
SEVERITY:- ABNORMAL ECG - SINUS RHYTHM PROBABLE LEFT ATRIAL ABNORMALITY CONSIDER ANTEROSEPTAL INFARCT : Confirmed by: Velma Whelan 27-Nov-2019 00:16:59
--- NOTE | 2019-11-27 03:28 | ER Document Report ---
ED General - General Chief Complaint: Chest Pain > 30 Stated Complaint: CHEST PAIN Time Seen by Provider: 11/26/19 22:13 Primary Care Provider: YOLANDA DEAN MD [Primary Care Provider] - Follow up as needed Mode of Arrival: Ambulatory Information source: Patient TRAVEL OUTSIDE OF THE [place] IN LAST 30 DAYS: No - HPI Onset: Other - Patient has a chronic several month pain in her left shoulder left side of her neck left scapular shoulder region posteriorly and left anterior chest wall area. 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 There is no other injury that patient can assign to this problem. Because the pain started in her left anterior chest wall is what brought her into the emergency room at this time. 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 Lives with: Family Family History: Reviewed & Not Pertinent Patient has suicidal ideation: No Patient has homicidal ideation: No - Past Medical History Cardiac Medical History: Denies: Hx Coronary Artery Disease, Hx Heart Attack, Hx Hypertension Pulmonary Medical History: Denies: Hx Asthma, Hx Bronchitis, Hx COPD, Hx Pneumonia Neurological Medical History: Denies: Hx Cerebrovascular Accident, Hx Seizures Renal/ Medical History: Denies: Hx Peritoneal Dialysis Malignancy Medical History: Reports: 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 Denies: Hx Hysterectomy, Hx Pacemaker - Immunizations Hx Diphtheria, Pertussis, Tetanus Vaccination: Yes Hx Pneumococcal Vaccination: 08/15/14 Review of Systems - Review of Systems Musculoskeletal: See HPI, Back pain, Muscle pain, Muscle stiffness, Neck pain Hematologic/Lymphatic: Other - History of leukemia on chemotherapy. Physical Exam - Vital signs Vitals: Temp Pulse Resp BP Pulse Ox 99.4 F 103 H 18 166/79 H 100 11/26/19 22:06 11/26/19 22:06 11/26/19 22:06 11/26/19 22:06 11/26/19 22:06 Interpretation: Normal - General General appearance: Appears well, Alert - HEENT Head: Normocephalic, Atraumatic Eyes: Normal Pupils: PERRL - Respiratory Respiratory status: No respiratory distress Chest status: Nontender Breath sounds: Normal Chest palpation: Normal - Cardiovascular Rhythm: Regular Heart sounds: Normal auscultation Murmur: No Notes: Easily reproducible chest wall pain in the left anterior chest wall. No c repitus noted no bruising. - Abdominal Inspection: Normal Distension: No distension Bowel sounds: Normal Tenderness: Nontender Organomegaly: No organomegaly - Back Back: Normal - Pain on palpation of left side of neck into the suprascapular region muscle left side., Nontender, Other - Back tenderness noted infrascapular on the left side. - Extremities General upper extremity: Normal inspection, Nontender, Normal color, Normal ROM, Normal temperature General lower extremity: Normal inspection, Nontender, Normal color, Normal ROM, Normal temperature, Normal weight bearing. No: Emeterio's sign - Neurological Neuro grossly intact: Yes Cognition: Normal Orientation: AAOx4 Lv Coma Scale Eye Opening: Spontaneous Lv Coma Scale Verbal: Oriented [place] Coma Scale Motor: Obeys Commands Lv Coma Scale Total: 15 Speech: Normal Motor strength normal: LUE, RUE, LLE, RLE Sensory: Normal - Psychological Associated symptoms: Normal affect, Normal mood - Skin Skin Temperature: Warm Skin Moisture: Dry Skin Color: Normal Course - Vital Signs Vital signs: Temp Pulse Resp BP Pulse Ox 98.4 F 77 17 133/74 H 97 11/27/19 02:35 11/27/19 02:35 11/27/19 02:35 11/27/19 02:35 11/27/19 02:35 - Laboratory Result Diagrams: 11/26/19 23:06 11/26/19 23:06 Laboratory results interpreted by me: 11/26/19 11/26/19 23:06 23:06 WBC 3.9 L RDW 15.0 H Urine Protein 30 H Urine Blood SMALL H - Diagnostic Test Radiology reviewed: Image reviewed, Reports reviewed - EKG Interpretation by Me Additional EKG results interpreted by me: 11/27/19 03:53 EKG shows a normal sinus rhythm rate of 89 left atrial abnormality consider anterior septal infarct indeterminate age. Poor R wave progression until lead V3 R wave is present Discharge - Discharge Clinical Impression: Musculoskeletal pain, Muscle spasm Left shoulder strain Qualifiers: Encounter type: initial encounter Qualified Code(s): S46.912A - Strain of unspecified muscle, fascia and tendon at shoulder and upper arm level, left arm, initial encounter Condition: Stable Disposition: HOME, SELF-CARE Instructions: Chest Wall Pain ([facility]) Additional Instructions: Muscle Relaxers Muscle relaxing medications are usually prescribed for acute muscle spasm or injury to the neck and back. They are often combined with antiinflammatory pain medication for increased relief. You may stop the muscle relaxer when the pain and stiffness have improved. Start the medication again if spasms recur. Muscle relaxers may cause drowsiness, especially with the first dose. Do not operate machinery or drive while under the effects of the medication. Most muscle relaxers last up to 24 hours. Do not combine the medication with alcohol.Muscle Strain You have strained a muscle -- torn the fibers within the muscle. This often occurs with strenuous exertion, or during an injury that suddenly stretches the muscle. The seriousness of a strain varies. Some strains heal within days, others cause problems for months. X-rays cannot show a muscle strain. X-rays are taken only if symptoms bustillos ggest that a fracture could be present. The usual treatment of a muscle strain is rest and ice packs. Sometimes, a sling, splint, or crutches may be necessary to rest the muscle. The muscle can be used again once pain subsides. Severe strains require a special exercise and stretching program to prevent permanent stiffness and disability. Your doctor will advise you if this will be necessary. Call the doctor immediately if pain or swelling becomes severe, or if numbness or discoloration develop. Prescriptions: Baclofen [Baclofen 10 mg Tablet] 10 mg PO QHS PRN 10 Days #10 tablet PRN Reason: muscle spasm Referrals: YOLANDA DEAN MD [Primary Care Provider] - Follow up as needed
[2019-11-27 04:08] VITALS: BP 136/83
== END 2019-11-27 04:15 | disposition home or self-care (01) ==
LOC: ER 21:51
DX: S46.912A Strain of unspecified muscle, fascia and tendon at shoulder and upper arm level, left arm, initial encounter (principal); M62.838 Other muscle spasm; R07.9 Chest pain, unspecified; X58.XXXA Exposure to other specified factors, initial encounter; Z90.49 Acquired absence of other specified parts of digestive tract; Z98.51 Tubal ligation status
CPT/HCPCS: 36415; 71046; 80053; 81001; 82550; 84484; 85025; 93005; 93010; 99285

== ENCOUNTER 2020-05-22 11:27 | Outpatient (CLI) | payer BC ==
[2020-05-22] MEDS ORDERED: FERUMOXYTOL (NON-ESRD) 510 MG/NS 100 ML IV PRN ×2 (11:36)
[2020-05-22] MEDS ORDERED: NORMAL SALINE 250 ML IV PRN (11:37)
[2020-05-22 11:46] VITALS: BP 143/72
== END 2020-05-22 12:33 | disposition home or self-care (01) ==
LOC: II 11:27 → 5TH 11:29 → II 12:33
PROVIDERS: ATTEND Internal Medicine
DX: D50.9 Iron deficiency anemia, unspecified (principal); K90.9 Intestinal malabsorption, unspecified
CPT/HCPCS: 96365; Q0138; J7050

== ENCOUNTER 2020-05-29 11:37 | Outpatient (CLI) | payer BC ==
[~2020-05-29 11:37] MED LIST changes: +FERUMOXYTOL (NON-ESRD) 510 MG/NS 100 ML IV PRN; +NORMAL SALINE 250 ML @ KVO IV PRN; -PROPOFOL INJ 200 MG/20 ML VIAL IV ONE
[2020-05-29 11:53] VITALS: BP 131/72
== END 2020-05-29 12:30 | disposition home or self-care (01) ==
LOC: II 11:37 → 5TH 11:40 → II 12:30
PROVIDERS: ATTEND Internal Medicine
DX: D50.9 Iron deficiency anemia, unspecified (principal); K90.9 Intestinal malabsorption, unspecified
CPT/HCPCS: 96365; Q0138; J7050